=== PATIENT | male | born 1950 | race Caucasian/White ===

== ENCOUNTER → 2016-10-24 | Outpatient (CLI) | payer MEDICARE, OTHER ==
--- NOTE | 2016-10-24 10:06 | US ---
EXAMINATION TYPE: US pelvic limited DATE OF EXAM: 10/24/2016 9:16 AM COMPARISON: NONE CLINICAL HISTORY: K40.90 R Inguinal Hernia. TECHNOLOGIST IMPRESSION: Bladder wnl Post void residual volume = 92.0 ml Bilateral ureteral jets seen No evidence of inguinal hernia Urinary bladder is sonolucent. Posterior wall appears within normal limits. Some prostate hypertrophy may be present. IMPRESSION: 1. Post void residual of 92 mL.
--- NOTE | 2016-10-24 10:11 | US ---
EXAMINATION TYPE: US abdomen complete DATE OF EXAM: 10/24/2016 8:53 AM COMPARISON: NONE CLINICAL HISTORY: K40.90 R Inguinal Hernia. Abdominal pain EXAM MEASUREMENTS: Liver Length: 16.9 cm Gallbladder Wall: 0.2 cm CBD: 0.4 cm Spleen: 10.9 cm Right Kidney: 12.1 x 6.3 x 5.7 cm cm Left Kidney: 11.7 x 5.6 x 5.3 cm cm TECHNOLOGIST IMPRESSION: wnl Pancreas: Obscured by bowel gas Liver: wnl Gallbladder: wnl Evidence for sonographic Galdamez's sign: no CBD: wnl Spleen: wnl Right Kidney: wnl Left Kidney: wnl Upper IVC: wnl Abd Aorta: wnl IMPRESSION: 1. Visualized abdomen ultrasound is normal. Limitation bowel gas is present.
== END | disposition home or self-care (01) ==
LOC: RADUSWWP 08:27
PROVIDERS: ATTEND Family Medicine
DX: K40.90 Unilateral inguinal hernia, without obstruction or gangrene, not specified as recurrent (principal)
CPT/HCPCS: 76700; 76857

== ENCOUNTER → 2016-10-30 | Outpatient (CLI) | payer MEDICARE, OTHER ==
--- NOTE | 2016-10-30 08:46 | US ---
EXAMINATION TYPE: US prostate transrectal DATE OF EXAM: 10/30/2016 8:31 AM COMPARISON: NONE CLINICAL HISTORY: N40.0 BPH. This examination was performed using the transrectal probe. EXAM MEASUREMENTS: Gland Size: 6.4 x 3.6 x 5.4cm Volume: 64.70 ml Predicted PSA: 7.76 Actual PSA (if available):1.6 Enlarged, heterogeneous gland with no distinct nodule visualized within peripheral zone IMPRESSION: Prostate enlargement without focal lesion identified. Predicted PSA = volume x 0.12 ng/ml Calculated Volume = 0.5236 x L x W x H
== END | disposition home or self-care (01) ==
LOC: RADUSMAIN 07:49
PROVIDERS: ATTEND Family Medicine
DX: N40.0 Benign prostatic hyperplasia without lower urinary tract symptoms (principal)
CPT/HCPCS: 76872

== ENCOUNTER → 2018-10-29 | Outpatient (CLI) | payer MEDICARE, OTHER ==
[2018-10-29 13:06] LABS: HCT 42.1 % (39.0-53.0); HGB 13.6 gm/dL (13.0-17.5); MCH 29.9 pg (25.0-35.0); MCHC 32.2 g/dL (31.0-37.0); MCV 92.7 fL (80.0-100.0); Platelet Count 317 k/uL (150-450); RBC 4.54 m/uL (4.30-5.90); RDW 12.7 % (11.5-15.5); WBC 7.8 k/uL (3.8-10.6)
[2018-10-29 20:46] LABS: Anion Gap 8.5 mmol/L (4.00-12.00); Carbon Dioxide 28.5 mmol/L (21.6-31.8); Potassium 4.3 mmol/L (3.5-5.5)
== END | disposition home or self-care (01) ==
LOC: LABWHC1 11:44
PROVIDERS: ATTEND Internal Medicine Interventional Cardiology
DX: Z01.812 Encounter for preprocedural laboratory examination (principal); I47.2 Ventricular tachycardia; I49.3 Ventricular premature depolarization; I10 Essential (primary) hypertension
CPT/HCPCS: 36415; 80051; 82565; 84520; 85027

== ENCOUNTER → 2018-10-30 | Day surgery (SDC) | payer MEDICARE, OTHER ==
[2018-10-29 12:36] VITALS: BMI 31.1
[~2018-10-30] MED LIST: ALPRAZolam 0.25 MG TAB PO PRN; ALPRAZolam 0.5 MG TAB PO PRN; ASPIRIN 325 MG TAB PO ONE; ATORVASTATIN 20 MG TAB PO SCH; ATORVASTATIN 80 MG TAB PO ONE; HEPARIN SODIUM 1,000 UN/ML (10ML VL) IV ONE; HEPARIN SODIUM 1,000 UN/ML (10ML VL) ONE; HYDROCHLOROTHIAZIDE 25 MG TAB PO SCH; IOPAMIDOL-370 100ML BTL INJ ONE; LIDOCAINE 1% INJ 10MG/ML (20 ML MDV) ONE; LIDOCAINE 1% INJ 10MG/ML (20 ML MDV) SQ ONE; LOSARTAN 25 MG TAB PO SCH; METOPROLOL TARTRATE 25 MG TAB PO SCH; MIDAZOLAM 2 MG/2 ML VIAL IVP ONE; NITROGLYCERIN SL TABS 0.4 MG TAB SUBLINGUAL PRN; RX INFO: IV CONTRAST WAS GIVEN 1 EACH MISC MISCELLANE PRN; SODIUM CHLORIDE 0.9% 1,000 ML IV SCH; SODIUM CHLORIDE 0.9% 1,000 ML in EMPTY BAG 1 BAG IV ONE; VERAPAMIL 2.5 MG/ML 2 ML AMP ONE; VERAPAMIL SYRINGE (5 MG/10 ML) INTRAARTER ONE; amLODIPine 5 MG TAB PO SCH; fentaNYL (PF) 50 MCG/ML 2 ML AMP IV ONE; fentaNYL (PF) 50 MCG/ML 2 ML AMP ONE
[2018-10-30 11:58] VITALS: TEMP 97.8
[2018-10-30 12:06] LABS: Anion Gap 8 mmol/L; Blood Urea Nitrogen 12 mg/dL (9-20); Calcium 9.3 mg/dL (8.4-10.2); Carbon Dioxide 28 mmol/L (22-30); Chloride 103 mmol/L (98-107); Glucose 100 mg/dL (74-99); Potassium 4.6 mmol/L (3.5-5.1); Sodium 139 mmol/L (137-145)
[2018-10-30 13:52] VITALS: RESP 16
--- NOTE | 2018-10-30 14:02 | CC ---
CARDIAC CATHETERIZATION REPORT Mr. Cobb is a 68-year-old male with known history of hypertension, hyperlipidemia, who is followed by Dr. Mendez, has evidence of cardiomyopathy with frequent ventricular ectopic activity. In view of his cardiomyopathy and his arrhythmia, recommendation made regarding cardiac catheterization to rule out any ischemic component. The procedures, risks and complication were discussed with the patient who is in full understanding and agreement. PROCEDURE: Patient was brought to the [facility] in a fasting semi-sedated state after receiving fentanyl and Benadryl and achieving moderate conscious sedated state. Using Xylocaine anesthesia and Seldinger technique, a 6-[place] sheath was introduced in the right radial artery. Selective right and left coronary angiography was performed using 5- [place] 3.5 bend right Chepe catheter, multiple views of coronary artery including hemiaxial views obtained. Following that, a 5-[place] tight pigtail catheter was introduced in the left ventricle and a 30 degree SOSA view of the left ventricle was obtained. Following that, catheter and sheath were removed. Hemostasis was obtained with deployment of a TR band. There was no immediate complication. Patient is returned to his room in stable condition. Of note, the patient received 5000 units of intravenous heparin as well as intra-arterial verapamil. FINDINGS: LEFT MAIN: This is a large-sized vessel bifurcating into left circumflex, left anterior descending artery and ramus intermedius. Left main coronary artery has no evidence of high-grade stenosis. LEFT ANTERIOR DESCENDING ARTERY: This is a large-sized vessel, reaching toward the apex with a wraparound apex segment, giving rise to a proximal diagonal branch. The left anterior descending artery as well as branches have no evidence of obstructive coronary artery disease. RAMUS INTERMEDIUS: This is a large vessel reaching toward the apical lateral wall. The ramus intermedius has no evidence of high-grade stenosis. LEFT CIRCUMFLEX: This is a nondominant vessel, giving rise to a small obtuse marginal branch. The left circumflex as well as branches have no evidence of obstructive coronary artery disease. RIGHT CORONARY ARTERY: This is a large dominant vessel, bifurcating distally into PDA and posterolateral segment branches. The right coronary artery as well as branches have no evidence of obstructive coronary artery disease. LEFT VENTRICULOGRAM: Left ventriculogram is performed in 30 degree SOSA view and revealed global hypokinesis with ejection fraction of 45%. There was 2+ mitral regurgitation. HEMODYNAMICS: There was no gradient across the aortic valve. The ventricular end- diastolic pressure was 16-18 mmHg. CONCLUSION: 1. Normal coronary arteries. 2. Mildly impaired left ventricular systolic function. RECOMMENDATION: In view of finding, his cardiomyopathy is nonischemic. He will continue present therapy. He will be evaluated for the need to undergo further workup by Dr. Mendez. Those findings and recommendation were discussed with the patient and his family who are in full understanding and agreement. Duration of procedure is 20 minutes. MMSURINDER / OLEKSANDRN: [id number] /
[2018-10-30 18:43] VITALS: BP 126/78; PULSE 72
== END | disposition home or self-care (01) ==
LOC: CATHCVL 10:48
PROVIDERS: ATTEND Internal Medicine Interventional Cardiology
DX: I42.0 Dilated cardiomyopathy (principal); I49.3 Ventricular premature depolarization; I47.1 Supraventricular tachycardia; I11.9 Hypertensive heart disease without heart failure; I34.0 Nonrheumatic mitral (valve) insufficiency; Z79.899 Other long term (current) drug therapy
CPT/HCPCS: 93458; 80048; C1894; C1769; J2250; J2001; J3010; J1644; Q9967